=== PATIENT | male | born 1980 | race Caucasian/White ===

== ENCOUNTER 2019-07-25 13:07 | Emergency (ER) | payer BC, SELFPAY ==
[2019-07-25 13:13] VITALS: BP 157/93; PULSE 117; RESP 20; TEMP 37.2; O2SAT 98
--- NOTE | 2019-07-25 13:16 | ED.SKABFB ---
HPI - Skin/Abscess/Foreign Bdy General Chief complaint: Skin/Abscess/Foreign Body Stated complaint: spot on back (boil) Time Seen by Provider: 07/25/19 13:16 Source: patient and RN notes reviewed History of Present Illness HPI narrative: Patient is a 39-year-old male that presents the urgent care with complaints of an abscess to the upper right back/back of the shoulder. Patient states he noticed it on Thursday. States that his is been trying to pop/drain the area . Patient states he has been using some organic salve on the area. Reports of some discharge this morning. Denies any fever, nausea, vomiting. No other acute complaints. No acute distress noted. Patient read the plan of care. Related Data Allergies Allergy/AdvReac Type Severity Reaction Status Date / Time Penicillins Allergy Unknown Rash Verified 07/25/19 13:27 Review of Systems Review of Systems: Narrative: CONSTITUTIONAL: Denies fever, chills, or sweats. EYES: Denies visual changes, redness, or discharge. ENT: Denies rhinorrhea, congestion, sore throat, or otalgia. CARDIOVASCULAR: Denies chest pain, palpitations, or edema. RESPIRATORY: Denies cough or dyspnea. GASTROINTESTINAL: Denies abdominal pain, nausea, vomiting, or diarrhea. GENITOURINARY: Denies dysuria or hematuria. SKIN: Reports of an abscess to the back of the right shoulder/upper back MUSCULOSKELETAL: Denies back pain, joint pain, or myalgia. NEUROLOGIC: Denies headache, numbness, or weakness. All other systems reviewed are negative, except as documented in HPI. PMFSH Comments At the time of my signature, I reviewed and agree with the nursing past medical, surgical, social, and family history. There is no relevant family history pertinent to the patient complaint. Exam Narrative: Exam Narrative: GENERAL: This is a well-nourished, well-developed patient, in no apparent distress. HEAD: normocephalic, atraumatic. EYES: PERRL. Sclera clear/white. Vision is grossly intact. EARS: External ears normal NOSE: External nose normal with no obvious nasal dischargea. THROAT: Mucous membranes moist NECK: Neck supple CARDIOVASCULAR: Regular rate and rhythm without murmurs, gallops, or rubs. RESPIRATORY: Clear to auscultation. Breath sounds equal bilaterally. No wheezes, rales, or rhonchi. SKIN: 8 x cm nonfluctuant abscess with 6 x 6 cm erythema and pinpoint draining yellow discharge NEURO: awake, alert, and oriented to person, place and time. There were no obvious focal neurologic abnormalities. EXTREMITIES: No clubbing, cyanosis, or edema. Course Vital Signs Vital signs: Vital Signs Temperature 99 F 07/25/19 13:13 Pulse Rate 117 H 07/25/19 13:13 Respiratory Rate 20 07/25/19 13:13 Blood Pressure 157/93 H 07/25/19 13:13 Pulse Oximetry 98 07/25/19 13:13 Temperature 99 F 07/25/19 13:13 Pulse Rate 117 H 07/25/19 13:13 Respiratory Rate 20 07/25/19 13:13 Blood Pressure 157/93 H 07/25/19 13:13 Pulse Oximetry 98 07/25/19 13:13 Reviewed?patient is informed that they may have pre-hypertension or hypertension based on a blood pressure reading in the department. I recommend the patient call the primary care provider listed on their discharge instructions or a physician of their choice this week to arrange follow-up for further evaluation of possible pre-hypertension or hypertension. MDM - Skin/Abscess/Foreign Bdy MDM Narrative Medical decision making narrative: Advised patient to complete antibiotic regimen as prescribed. Make sure to eat and drink with the medication. Use plain Dial soap and water to wash area at least twice a day. Keep it covered if at risk of being soiled or wearing a shirt. Keep open to air while at home. Use cream as directed twice a day if area opens or is draining. Avoid picking and prodding at the area. Do not try to drain it on your own. Follow-up with PCP within 2 to 5 days or for worsening symptoms or failure to improve. Differential Diagnosis Differen
== END 2019-07-25 13:30 | disposition home or self-care (01) ==
PROVIDERS: Emergency Provider Nurse Practitioner Family
DX: L02.212 Cutaneous abscess of back [any part, except buttock and flank] (principal)
CPT/HCPCS: 99213; G0463